=== PATIENT | male | born 1955 | race Caucasian/White ===

== ENCOUNTER 2019-05-06 19:35 | Emergency (ER) | payer MEDICARE ==
[~2019-05-06] VITALS: Ht 188 cm; Wt 99.8 kg
[2019-05-06] MEDS ORDERED: HYDCHL50 PO (19:57)
[2019-05-06] MEDS ORDERED: OMEPRAZOLE20 MG PO (19:57)
[2019-05-06] MEDS ORDERED: POTA8 PO (19:57)
== END 2019-05-06 20:59 | disposition home or self-care (01) ==
LOC: ER 19:35
DX: S01.01XA Laceration without foreign body of scalp, initial encounter (principal); I10 Essential (primary) hypertension; K21.9 Gastro-esophageal reflux disease without esophagitis; E87.6 Hypokalemia; Z88.1 Allergy status to other antibiotic agents; Z88.8 Allergy status to other drugs, medicaments and biological substances; Z79.899 Other long term (current) drug therapy; W22.8XXA Striking against or struck by other objects, initial encounter
CPT/HCPCS: 12002; 90471; 90714; 99282-25